=== PATIENT | female | born 1975 | race Two or more races ===

== ENCOUNTER → 2022-11-06 06:00 | Outpatient (CLI) | payer OTHER ==
[~2022-11-06] VITALS: Ht 160 cm; Wt 72.6 kg
[~2022-11-06 06:00] MED LIST: COZAAR100 MG PO; LEVO-T125 MCG PO
== END | disposition home or self-care (01) ==
LOC: LAB 06:00 → ADM 10:15 → CIR.AMB 11-07 07:00 → EDSTATUS 11-07 10:15 → CIR.AMB 11-07 10:15
PROVIDERS: ATTEND Obstetrics & Gynecology Maternal & Fetal Medicine
DX: Z01.812 Encounter for preprocedural laboratory examination (principal); Z01.810 Encounter for preprocedural cardiovascular examination; N84.0 Polyp of corpus uteri

== ENCOUNTER 2024-01-31 13:23 | Outpatient (CLI) | payer OTHER | END 2024-01-31 13:31 | disposition home or self-care (01) | LOC: SONOGRAMA 13:23 | PROVIDERS: ATTEND Internal Medicine | DX: R10.84 Generalized abdominal pain (principal) ==

== ENCOUNTER 2024-02-05 06:05 | Day surgery (SDC) | payer OTHER ==
[2024-01-31 12:13] LABS: INR 0.98; PARTIAL THROMBOPLASTIN TIME 29.6 SECONDS (22.0-34.0); PROTHROMBIN TIME 10.3 SECONDS (9.0-11.5)
[2024-01-31 12:22] LABS: ALBUMIN 3.5 gm/dL (3.4-5.0); BILIRUBIN TOTAL 0.29 mg/dL (0.3-1.2); CALCIUM 9.4 mg/dL (8.5-10.1); CREATININE SERUM 0.6 mg/dL (0.55-1.02); GFR 105.82; GLOBULINA 3.4 G/DL (2.4-3.5); POTASSIUM 4.46 mEq/L (3.5-5.1); TOTAL PROTEIN 6.9 gm/dL (6.4-8.2); TSH 2.17 uIU/mL (0.358-3.74)
[2024-01-31 15:32] LABS: AMYLASE 77 U/L (25-115); LIPASE 46 U/L (13-75)
[2024-02-05] MEDS ORDERED: CHLORHEXIDINE GLUCONATE 120 ML BOTTLE TOP ONE ×2 (06:42→08:45)
[2024-02-05] MEDS ORDERED: POVIDONE-IODINE 118 ML BOTT TOP ONE (08:45)
== END 2024-02-05 12:40 | disposition home or self-care (01) ==
LOC: CIR.AMB 06:05
PROVIDERS: ATTEND Obstetrics & Gynecology Maternal & Fetal Medicine
DX: N84.0 Polyp of corpus uteri (principal); F41.9 Anxiety disorder, unspecified